=== PATIENT | female | born 1990 | race Caucasian/White ===

== ENCOUNTER 2021-10-18 20:22 | Emergency (ER) | payer OTHER ==
[2021-10-18 21:03] LABS: CHLORIDE,CL 104 mEq/L (98-106); SODIUM,NA 141 mEq/L (136-145)
[2021-10-18 21:07] LABS: PTT,PARTIAL THROMBOPLSTIN TIME 24.4 SEC (23.2-32.3)
[2021-10-18] MEDS ORDERED: Iopamidol 755 Mg/ML 100 ML Bottle IVPUSH ONE (21:44)
[2021-10-18] MEDS ORDERED: Magnesium Sulfate/Water 2 GM in Premix Bag 1 BAG IV ONE (22:11)
[2021-10-18 22:16] VITALS: PULSE 70
[2021-10-18 22:36] VITALS: BP 116/82
== END 2021-10-18 23:04 | disposition home or self-care (01) ==
LOC: CC.ED 20:22
DX: R06.02 Shortness of breath (principal); R60.0 Localized edema; J90 Pleural effusion, not elsewhere classified; E83.42 Hypomagnesemia
CPT/HCPCS: 36415; 71275; 80053; 82550; 83615; 83690; 83735; 84484; 85025; 85379; 85610; 85730; 93005; 99284; 99285-25; A9270-GY; Q9967

== ENCOUNTER 2024-03-15 19:54 | Emergency (ER) | payer OTHER ==
[2024-03-15 20:06] VITALS: BP 148/99; PULSE 82
[2024-03-15] MEDS: Sodium Chloride 0.9% 1,000 ML IV ONE (20:10)
[2024-03-15 20:14] LABS: BASOPHILS ABSOLUTE AUTO 0.04 10^3/uL (0.00-0.50); BASOPHILS PERCENT AUTO 0.4 % (0-1); EOSINOPHILS ABSOLUTE AUTO 0.19 10^3/uL (0.00-1.50); HEMATOCRIT 38.7 % (37.0-47.0); HEMOGLOBIN 12.5 g/dL (12.0-16.0); IMMATURE GRAN ABSOLUTE AUTO 0.02 10^3/uL (0.00-0.49); IMMATURE GRAN PERCENT AUTO 0.2 % (0.0-4.9); LYMPHOCYTES ABSOLUTE AUTO 4.16 10^3/uL (0.60-5.00); LYMPHOCYTES PERCENT AUTO 44.7 % (24-44); MEAN CORPUSCULAR HEMOGLOBIN 29.3 pg (27.0-32.0); MEAN CORPUSCULAR HGB CONC 32.3 g/dL (32.0-36.0); MEAN CORPUSCULAR VOLUME 90.6 fL (83.0-97.0); MONOCYTES ABSOLUTE AUTO 0.62 10^3/uL (0.00-1.50); MONOCYTES PERCENT AUTO 6.7 % (0-10); NEUTROPHILS ABSOLUTE AUTO 4.28 x10^3/uL (1.80-8.00); PLATELET COUNT,PLT 250 10^3/uL (150-400); RED BLOOD CELL COUNT 4.27 x10^6/uL (4.00-5.50); WHITE BLOOD CELL COUNT,WBC 9.3 10^3/uL (4.0-11.0)
[2024-03-15 20:15] LABS: APPEARANCE,URINE CLOUDY (CLEAR); BILIRUBIN,URINE NEGATIVE (NEGATIVE); COLOR,URINE DARK YELLOW (YELLOW); GLUCOSE,URINE NEGATIVE (NEGATIVE); KETONES,URINE NEGATIVE (NEGATIVE); LEUKOCYTE ESTERASE,URINE NEGATIVE (NEGATIVE); NITRITE,URINE NEGATIVE (NEGATIVE); OCCULT BLOOD,URINE LARGE (NEGATIVE); PH,URINE 6.5 (4.5-8.0); PROTEIN,URINE 30 mg/dL (NEGATIVE); UROBILINOGEN,URINE 0.2 EU/dL (0.2-1.0)
[2024-03-15 20:21] LABS: BACTERIA,URINE FEW /HPF (NOT SEEN); RBC,URINE >100 /HPF (0-5); SQUAMOUS EPITHELIAL CELLS,UR MODERATE /HPF (NOT SEEN); WBC,URINE NOT SEEN /HPF (0-5)
[2024-03-15] MEDS: Ondansetron 4 MG/2 ML SDV IVPUSH STA (20:22)
[2024-03-15 20:27] LABS: ALBUMIN 3.6 g/dL (3.4-5.0); BILIRUBIN TOTAL 0.4 mg/dL (0.0-1.0); C-REACTIVE PROTEIN 0.9 mg/dL (<=0.50); CALCIUM 9.1 mg/dL (8.4-10.1); CREATININE 1.1 mg/dL (0.6-1.0); EST CRCL DRUG DOSING (CG) 66.07 mL/min; POTASSIUM,K 4.5 mEq/L (3.5-5.0); PROTEIN TOTAL,TP 7.3 g/dL (6.4-8.2)
[2024-03-15] MEDS: HYDROmorphone 0.5 MG/0.5 ML Syringe IVPUSH ONE (20:50)
[2024-03-15] MEDS: Iopamidol 755 Mg/ML 100 ML Bottle IVPUSH ONE (20:52)
[2024-03-15] MEDS: Sodium Chloride 0.9% 1,000 ML IV SCH (21:34)
[2024-03-15] MEDS: Tamsulosin 0.4 MG Cap.ER PO ONE ×2 (22:03→22:59)
[2024-03-15] MEDS: Ketorolac 30 MG/ML SDV IVPUSH ONE (22:03)
[2024-03-15] MEDS: Take Home: Ondansetron 4 MG Tab.DIS, 2 Tab Pack PO ONE (22:56)
[2024-03-15] MEDS: Take Home: Ketorolac 10 MG Tab, 4 Tab Pack PO ONE (22:57)
[2024-03-15] MEDS: Ondansetron 4 MG Tab.DIS ONE (22:58)
== END 2024-03-15 23:00 | disposition home or self-care (01) ==
LOC: CC.ED 19:54
DX: N13.2 Hydronephrosis with renal and ureteral calculous obstruction (principal); Z79.84 Long term (current) use of oral hypoglycemic drugs; Z79.899 Other long term (current) drug therapy
CPT/HCPCS: 36415; 74177; 80053; 81001; 81025; 85025; 86140; 96361; 96374; 96375; 99284; 99284-25; A9270-GY; J1170; J1885; J2405; J7030; Q9967